=== PATIENT | female | born 1945 ===

== ENCOUNTER → 2018-09-07 | Outpatient (REF) | payer MEDICARE, OTHER ==
[2018-09-07 17:46] LABS: PLATELET COUNT, AUTOMATED 240 K/uL (150-450)
[2018-09-07 17:54] LABS: INR 0.99
== END ==
LOC: ZZSTITCHES 17:24
PROVIDERS: ATTEND Physician Assistant
DX: I48.91 Unspecified atrial fibrillation (principal); R00.0 Tachycardia, unspecified; R05 Cough; J98.11 Atelectasis
CPT/HCPCS: 82040; 82247; 82310; 82374; 82435; 82565; 82947; 84075; 84132; 84155; 84295; 84439; 84443; 84450; 84460; 84484; 84520; 85025; 85610